=== PATIENT | female | born 1950 | race Caucasian/White ===

== ENCOUNTER 2020-04-07 15:51 | Emergency (ER) | payer MEDICARE, SELFPAY ==
[2020-04-07 15:56] VITALS: BP 176/70; PULSE 76; RESP 20; TEMP 37.2; O2SAT 100
--- NOTE | 2020-04-07 16:04 | ED.GENADULT ---
HPI - General Adult General Chief complaint: Skin/Abscess/Foreign Body Stated complaint: rash Time Seen by Provider: 04/07/20 16:05 Source: patient and RN notes reviewed Mode of arrival: ambulatory Limitations: no limitations History of Present Illness HPI narrative: 70-year-old female presents with complaints of red, raised, and itching rash to right arm for the past 2 weeks. Milagros reports noticing rash after carrying outdoor flower pots in arms from outside. Milagros reports rash continues after treatment with liquid Campho-Phenique and Benadryl (last used 3 days ago). Denies new changes in personal hygiene products or laundry detergent. No new foods or medications. No swelling, burning, bleeding, or drainage. Denies fever, headaches, weakness, fatigue, myalgia, facial swelling, or tongue swelling. Denies chest pain or dyspnea. LMP Postmenopausal. Tolerating po intake well. Remains active. The patient reports she have not been diagnosed with COVID-19. The patient reports she is not waiting for the results of a COVID-19 lab test. The patient reports she do not have chills, weakness, or fatigue. The patient reports she do not have a new or worsening cough or shortness of breath. Denies chest pain. The patient reports she do not have any rhinorrhea, congestion, sore throat, loss of taste, nausea, vomiting, abdominal pain, and diarrhea. Denies recent traveling. Denies concerns for COVID-19 or exposures been home with limited outdoor exposure except for essential household needs, work ([employer]), and return home. At this time, patient is not suspected of having COVID-19. Some parts of this dictation were generated by voice recognition software and may contain typographical and/or grammatical inaccuracies. Related Data Allergies Allergy/AdvReac Type Severity Reaction Status Date / Time No Known Allergies Allergy Mild Unverified 02/29/04 14:32 Review of Systems Review of Systems: Narrative: CONSTITUTIONAL: Denies fever, chills, sweats. EYES: Denies visual changes, redness, discharge. ENT: Denies rhinorrhea, congestion, sore throat, otalgia. CARDIOVASCULAR: Denies chest pain, palpitations, edema. RESPIRATORY: Denies dyspnea, wheezing, cough. GASTROINTESTINAL: Denies abdominal pain, nausea, vomiting, diarrhea. SKIN: Complaints of red, raised, and itching rash to right arm. Denies drainage. MUSCULOSKELETAL: Denies acute back pain, joint pain, or myalgia. NEUROLOGIC: Denies numbness or focal weakness. PSYCHIATRIC: Denies anxiety or depression. All other systems reviewed & are unremarkable except as noted in HPI and below. [facility] Past Medical History Medical History (Updated 04/07/20 @ 16:35 by TONG Acharya) Pacemaker Postmenopausal Raynaud disease Surgical History Surgical History (Updated 04/07/20 @ 16:35 by TONG Acharya) No significant past surgical history Family History Family History (Updated 04/07/20 @ 16:36 by TONG Acharya) Mother , Bedridden for 2 years prior to and 84 Patient's mother is , Onset Age: 84 Family history of malignant neoplasm of breast in first degree relative Family history of renal failure Hypertension Father Malignant neoplasm of prostate, Onset Age: 82 Grandparent Family history of emphysema Family history of congestive heart failure, Onset Age: 91 Social History Social History (Updated 04/07/20 @ 16:37 by TONG Acharya) Smoking status: Never smoker Tobacco type: cigarettes Second hand tobacco smoke exposure: No Alcohol intake: never Substance use: never Living arrangements: with family Additional living arrangements comments: spouse Occupation/Education: retired Additional occupation/education comments: Kim is retired from her initial job but works at the [employer] part-time Gender identity (if verbalized by the patient): Female Sexual Orientation (if Verb
[2020-04-07 16:34] VITALS: BP 168/78
== END 2020-04-07 16:36 | disposition home or self-care (01) ==
PROVIDERS: Emergency Provider Nurse Practitioner Family; PCP Family Medicine
DX: L25.9 Unspecified contact dermatitis, unspecified cause (principal); Z95.0 Presence of cardiac pacemaker; I73.00 Raynaud's syndrome without gangrene
CPT/HCPCS: 99213; G0463

== ENCOUNTER → 2020-09-30 15:13 | Outpatient (CLI) | payer MEDICARE, SELFPAY ==
--- NOTE | ~2020-09-30 | MM_ITS ---
EXAMINATION: MM screening misty BI w ilsa HISTORY: Screening mammogram TECHNIQUE: Craniocaudal and mediolateral oblique 3-D tomosynthesis images were obtained and synthetic 2-D images were generated. CAD analysis was submitted and interpreted. COMPARISON: 08/17/2018, 04/07/2017 bilateral digital screening mammogram examinations BREAST PARENCHYMAL COMPOSITION: The breasts are heterogeneously dense, which may obscure small masses . FINDINGS: There is no evidence of suspicious mass, calcification, or architectural distortion to sugg est malignancy in either breast. There has been no suspicious interval change. IMPRESSION: 1. No mammographic evidence of malignancy. 2. Recommend routine screening mammography in one year. BI-RADS Category 1: Negative Reviewed, dictated and finalized at location A.
== END ==
PROVIDERS: Visit Provider Family Medicine
DX: Z12.31 Encounter for screening mammogram for malignant neoplasm of breast (principal)
CPT/HCPCS: 77063; 77067

== ENCOUNTER 2021-02-14 01:28 | Day surgery (SDC) | payer MEDICARE, SELFPAY ==
[2021-02-03 13:36] VITALS: BMI 20.7
[2021-02-14] MEDS: LACTATED RINGERS 1,000 ML 150 ML IV CONT (07:21)
--- NOTE | 2021-02-14 07:41 | P.PNAN_ITS ---
Anes - Initial Pre Proc Eval Procedure: Operation Date: 02/14/21 08:00 Proposed Procedures p Screening Colonoscopy - Nirmal Szymanski MD Date/Time: 02/14/21 07:41 Surgeon: Nirmal Szymanski MD Pre Op Diagnosis: hx of colon polyps, family hx colon ca Patient Data Age: 70 Gender: F Height: 1.65 m Weight: 54.8 kg Allergies Allergy/AdvReac Type Severity Reaction Status Date / Time No Known Allergies Allergy Mild Verified 02/14/21 07:01 Home Medications Medication Instructions Recorded Confirmed Type nifedipine 30 mg tablet,extended 30 mg PO DAILY #90 tablet 05/22/20 02/14/21 Rx release Patient hx anesthesia problems: none Family hx anesthesia problems: none Results Review: All pre-operative results and documents have been reviewed as part of the pre-operative evaluation. [facility] Past Medical History Medical History BMI 20.0-20.9, adult Breast cancer screening by mammogram Colon cancer screening Contact dermatitis Elevated fasting glucose Microscopic hematuria Mixed hyperlipidemia Muscle spasm of right lower extremity Pacemaker Polyp of colon Postmenopausal Raynaud disease Raynaud's disease without gangrene Seasonal allergic rhinitis Vitamin D deficiency, unspecified Surgical History Surgical History No significant past surgical history Family History Family History Mother , Bedridden for 2 years prior to and 84 Patient's mother is , Onset Age: 84 Family history of malignant neoplasm of breast in first degree relative Family history of renal failure Hypertension Father Malignant neoplasm of prostate, Onset Age: 82 Grandparent Family history of emphysema Family history of congestive heart failure, Onset Age: 91 Social History Social History Smoking status: Never smoker Tobacco type: cigarettes Second hand tobacco smoke exposure: No Alcohol intake: never Substance use: never Substance use type: does not use Living arrangements: with family Additional living arrangements comments: spouse Additional occupation/education comments: Kim is retired from her initial job but works at the [employer] part-time Gender identity (if verbalized by the patient): Female Sexual Orientation (if Verbalized by the Patient): Straight or Heterosexual Spiritual care concerns: No Anes - Eval Final PreProcedure Day of Procedure 02/14/21 07:41 Patient weight: normal Heart: regular rate and rhythm Lungs: clear to auscultation Airway: Mallampati scale class II Neurological: alert and oriented Last oral intake: >/= 8 hours ASA classification: III Emergent: no Anesthetic plan: proceed Anesthesia type and monitoring: general GIVS and standard monitoring Results Review: All pre-operative results and documents have been reviewed as part of the pre-operative evaluation. Informed Consent: The patient's anesthetic plan and its attendant risks and benefits were discussed with the patient/family/POA. Questions were solicited and answers provided to the satisfaction of the patient/family/POA.
--- NOTE | 2021-02-14 07:52 | WPDGICN ---
Assessment and Plan Assessment and plan (1) History of colon polyps: Code(s): Z86.010 - Personal history of colonic polyps Status: Acute Assessment and Plan: Patient has a history of colon polyps removed on prior colonoscopy. Plan is for surveillance colonoscopy now and at 5 year intervals in the future. (2) Family history of colon cancer in father: Code(s): Z80.0 - Family history of malignant neoplasm of digestive organs Status: Acute Assessment and Plan: Patient's father had colon cancer. Plan is for screening colonoscopy at 5 year intervals. GI Consult Note Consult date/time: 02/14/21 07:52 HPI: Milagros Bates is a 70 year old female Presents for screening colonoscopy. Patient has a prior history of colon polyps in 2013. Her current weight appetite bowel movements are normal. She denies abdominal pain. She has had no bleeding. Family history is significant that her father had colon cancer. She presents today for screening colonoscopy. Review of Systems Review of Systems: All systems reviewed & are unremarkable except as noted in HPI and below PMFSH Past Medical History Medical History BMI 20.0-20.9, adult Breast cancer screening by mammogram Colon cancer screening Contact dermatitis Elevated fasting glucose Microscopic hematuria Mixed hyperlipidemia Muscle spasm of right lower extremity Pacemaker Polyp of colon Postmenopausal Raynaud disease Raynaud's disease without gangrene Seasonal allergic rhinitis Vitamin D deficiency, unspecified Surgical History Surgical History No significant past surgical history Family History Family History Mother , Bedridden for 2 years prior to and 84 Patient's mother is , Onset Age: 84 Family history of malignant neoplasm of breast in first degree relative Family history of renal failure Hypertension Father Malignant neoplasm of prostate, Onset Age: 82 Grandparent Family history of emphysema Family history of congestive heart failure, Onset Age: 91 Social History Social History Smoking status: Never smoker Tobacco type: cigarettes Second hand tobacco smoke exposure: No Alcohol intake: never Substance use: never Substance use type: does not use Living arrangements: with family Additional living arrangements comments: spouse Additional occupation/education comments: Kim is retired from her initial job but works at the [employer] part-time Gender identity (if verbalized by the patient): Female Sexual Orientation (if Verbalized by the Patient): Straight or Heterosexual Spiritual care concerns: No Meds Home Medications and Allergies Home Medications Medication Instructions Recorded Confirmed Type nifedipine 30 mg tablet,extended 30 mg PO DAILY #90 tablet 05/22/20 02/14/21 Rx release Allergies Allergy/AdvReac Type Severity Reaction Status Date / Time No Known Allergies Allergy Mild Verified 02/14/21 07:01 Exam Narrative: Physical exam reveals patient be alert. Vital signs stable. HEENT exam is unremarkable. Patient is anicteric. Lungs are clear to auscultation and percussion. Heart is without murmur or extra sounds. Abdominal exam bowel sounds are present soft nontender with no organomegaly. Digital external rectal exam is normal.
[2021-02-14 08:22] VITALS: BP 93/44; PULSE 63; RESP 12; O2SAT 98
[2021-02-14 08:32] VITALS: BP 113/75; PULSE 73; RESP 20; O2SAT 100
[2021-02-14 08:42] VITALS: BP 122/68; PULSE 60; RESP 16; O2SAT 100
== END 2021-02-14 08:54 | disposition home or self-care (01) ==
PROVIDERS: PCP Family Medicine; Visit Provider Internal Medicine Gastroenterology
PROC: 0DJD8ZZ Inspection of Lower Intestinal Tract, Via Natural or Artificial Opening Endoscopic (ICD-10-PCS; CPT 45378; principal; 2021-02-14 08:00)
DX: Z12.11 Encounter for screening for malignant neoplasm of colon (principal); Z80.0 Family history of malignant neoplasm of digestive organs; K64.8 Other hemorrhoids; L30.9 Dermatitis, unspecified; R31.29 Other microscopic hematuria; I73.00 Raynaud's syndrome without gangrene; E55.9 Vitamin D deficiency, unspecified; E78.2 Mixed hyperlipidemia; R73.01 Impaired fasting glucose
CPT/HCPCS: G0105; J2704; J7120

== ENCOUNTER → 2021-05-01 11:51 | Outpatient (REF) | payer MEDICARE, SELFPAY | LOC: ANHLAB 11:51 | PROVIDERS: PCP Family Medicine; Visit Provider Nurse Practitioner | DX: D22.5 Melanocytic nevi of trunk (principal) | CPT/HCPCS: 88304; 88305 ==

== ENCOUNTER 2022-04-07 07:00 | Outpatient (NON) | payer MEDICARE, SELFPAY | END 2022-04-07 07:01 | disposition home or self-care (01) | PROVIDERS: PCP Family Medicine; Visit Provider Nurse Practitioner | DX: L72.0 Epidermal cyst (principal) | CPT/HCPCS: 88304 ==

== ENCOUNTER → 2022-04-30 14:46 | Outpatient (CLI) | payer MEDICARE, SELFPAY ==
--- NOTE | ~2022-04-30 | MM_ITS ---
EXAMINATION: MM screening misty BI w ilsa HISTORY: Screening TECHNIQUE: Craniocaudal and mediolateral oblique 3-D tomosynthesis images were obtained and synthetic 2-D images were generated. CAD analysis was submitted and interpreted. COMPARISON: Comparison to multiple prior studies sequentially, with oldest reviewed study dated 10/05. BREAST PARENCHYMAL COMPOSITION: The breasts are extremely dense, which lowers the sensitivity of mamm ography FINDINGS: There is no evidence of suspicious mass, calcification, or architectural distortion to sugg est malignancy in either breast. There has been no suspicious interval change. IMPRESSION: 1. No mammographic evidence of malignancy. 2. Recommend routine screening mammography in one year. BI-RADS Category 1: Negative Reviewed, dictated and finalized at location A. TILE LAYER
--- NOTE | ~2022-04-30 | DEXA_ITS ---
Bone Density Report Name: MANOLO CONLEY Age: 72 Sex: Female Ethnicity: White Date of : 1950 Indication: postmenopausal; screening for osteoporosis; height loss; Referring Provider: FERNANDO LOERA Study: Bone densitometry was performed. Exam Date: April 30, 2022 Accession number: [id number] Bone Density: Region BMD T-score Z-score Classification AP Spine (L1-L4) 1.102 0.5 2.8 Normal Femoral Neck (Left) 0.661 -1.7 0.3 Osteopenia Total Hip (Left) 0.836 -0.9 0.8 Normal Femoral Neck (Right) 0.694 -1.4 0.6 Osteopenia Total Hip (Right) 0.798 -1.2 0.5 Osteopenia Total Hip Mean 0.817 -1.1 0.7 Osteopenia World Health Organization criteria for BMD impression classify patients as: Normal (T-score at or above -1.0), Osteopenia (T-score between -1.0 and -2.5), or Osteoporosis (T-score at or below -2.5). 10-year Fracture Risk(1): Major Osteoporotic Fracture 10% Hip Fracture 2.0% Reported Risk Factors: [place] (), Neck BMD=0.661, BMI=21.2 (1) FRAX(R) Version 3.08. Fracture probability calculated for an untreated patient. Fracture probability may be lower if the patient has received treatment. Previous Exams: Region Exam Age BMD T-score BMD Change BMD Change Date g/cm2 vs Baseline vs Previous AP Spine(L1-L4) 04/30/2022 72 1.102 0.5 0.008 0.035* 11/01/2015 65 1.067 0.2 -0.027* 0.001 08/06/2011 61 1.066 0.2 -0.029* -0.029* 02/23/2007 57 1.095 0.4 Total Hip(Left) 04/30/2022 72 0.836 -0.9 -0.072 -0.053* 11/01/2015 65 0.889 -0.4 -0.019 0.058* 08/06/2011 61 0.830 -0.9 -0.078 -0.080* 02/23/2007 57 0.910 -0.3 0.002 0.002 11/19/2003 53 0.908 -0.3 Total Hip(Right) 04/30/2022 72 0.798 -1.2 -0.063 -0.058* 11/01/2015 65 0.856 -0.7 -0.005 0.048* 08/06/2011 61 0.807 -1.1 -0.053 -0.049* 02/23/2007 57 0.857 -0.7 -0.004 -0.004 11/19/2003 53 0.861 -0.7 *Denotes significance at 95% confidence level, LSC for AP Spine = 0.022 g/cm2, LSC for Total Hip = 0.027 g/cm2 Clinical Information Provided by Patient: Has used the following medications: Vitamin D Patient maximum height was 66 Menopause Age: 49 Drinks caffeinated beverages Onset of menses at age 14 Number of children 2
== END ==
PROVIDERS: PCP Family Medicine; Visit Provider Family Medicine
DX: Z12.31 Encounter for screening mammogram for malignant neoplasm of breast (principal); Z78.0 Asymptomatic menopausal state; M85.89 Other specified disorders of bone density and structure, multiple sites
CPT/HCPCS: 77063; 77067; 77080

== ENCOUNTER 2023-05-31 11:49 | Outpatient (NON) | payer MEDICARE, SELFPAY | END 2023-05-31 11:50 | disposition home or self-care (01) | LOC: ANHLAB 06-02 11:51 | PROVIDERS: PCP Family Medicine; Visit Provider Nurse Practitioner | DX: D18.01 Hemangioma of skin and subcutaneous tissue (principal) | CPT/HCPCS: 88305 ==

== ENCOUNTER 2023-11-26 12:25 | Outpatient (CLI) | payer MEDICARE, SELFPAY ==
--- NOTE | ~2023-11-26 | MM_ITS ---
EXAMINATION: MM screening misty BI w ilsa HISTORY: Screening TECHNIQUE: Craniocaudal and mediolateral oblique 3-D tomosynthesis images were obtained and synthetic 2-D images were generated. CAD analysis was submitted and interpreted. COMPARISON: Comparison to multiple prior studies sequentially, with oldest reviewed study dated 10/24. BREAST PARENCHYMAL COMPOSITION: Dense: The breasts are extremely dense, which lowers the sensitivity of mammography. FINDINGS: There is no evidence of suspicious mass, calcification, or architectural distortion to sugg est malignancy in either breast. There has been no suspicious interval change. IMPRESSION: 1. No mammographic evidence of malignancy. 2. Recommend routine screening mammography in one year. BI-RADS Category 1: Negative Reviewed, dictated and finalized at location B.
== END 2023-11-26 12:26 ==
PROVIDERS: PCP Family Medicine; Visit Provider Family Medicine
DX: Z12.31 Encounter for screening mammogram for malignant neoplasm of breast (principal)
CPT/HCPCS: 77063; 77067

== ENCOUNTER 2024-11-28 12:06 | Outpatient (CLI) | payer MEDICARE, OTHER, SELFPAY ==
--- NOTE | ~2024-11-28 | MM_ITS ---
EXAMINATION: MM screening misty BI w ilsa HISTORY: Screening TECHNIQUE: Craniocaudal and mediolateral oblique 3-D tomosynthesis images were obtained and synthetic 2-D images were generated. CAD analysis was submitted and interpreted. COMPARISON: Comparison to multiple prior studies sequentially, with oldest reviewed study dated 03/11. BREAST PARENCHYMAL COMPOSITION: The breasts are heterogeneously dense, which may obscure small masses . FINDINGS: There is no evidence of suspicious mass, calcification, or architectural distortion to sug gest malignancy in either breast. IMPRESSION: 1. No mammographic evidence of malignancy. 2. Recommend routine screening mammography in one year. BI-RADS Category 1: Negative Reviewed, dictated and finalized at location B.
== END 2024-11-28 12:07 | disposition home or self-care (01) ==
PROVIDERS: PCP Family Medicine; Visit Provider Family Medicine
DX: Z12.31 Encounter for screening mammogram for malignant neoplasm of breast (principal)
CPT/HCPCS: 77063; 77067